=== PATIENT | female | born 1985 | race African-American/Black ===

== ENCOUNTER 2017-02-08 12:34 | Emergency (ER) | payer MEDICAID, OTHER ==
[~2017-02-08] VITALS: Ht 172.7 cm; Wt 109.0 kg
[~2017-02-08 12:34] MED LIST: ABILIFY; AMOXICILLIN; ARIP10TA14 PO; CIPRO; LITH150C7 PO; TEMA15CA PO
[2017-02-08 13:05] VITALS: BP 131/80
== END 2017-02-08 14:30 | disposition home or self-care (01) ==
LOC: ER 13:48
DX: J06.9 Acute upper respiratory infection, unspecified (principal); Z88.0 Allergy status to penicillin; Z88.6 Allergy status to analgesic agent; Z79.899 Other long term (current) drug therapy
CPT/HCPCS: 99282